=== PATIENT | female | born 1985 | race Asian ===

== ENCOUNTER 2021-12-01 01:38 | Emergency (ER) | payer OTHER ==
[~2021-12-01] VITALS: Ht 162.6 cm; Wt 62.0 kg
[2021-12-01] MEDS ORDERED: METOCLOPRAMIDE HCL 10MG/2ML VIAL IV ONE (02:15)
[2021-12-01] MEDS ORDERED: SODIUM CHLORIDE 0.9% 1,000 ML IV ONE (02:15)
[2021-12-01 02:30] LABS: BASOPHILS % 0.5 % (0.0-2.0); EOSINOPHILS % 1.7 % (0.0-5.0); HEMATOCRIT. 41.9 % (36.0-48.0); HEMOGLOBIN. 14.3 g/dL (12.0-16.0); LYMPHOCYTES % 9.4 % (20.0-50.0); MEAN CORPUSCULAR HEMOGLOBIN 30.4 pg (28.0-32.0); MEAN CORPUSCULAR VOLUME 89.1 fL (81.0-99.0); MEAN PLATELET VOLUME 7.8 fl (7.4-10.4); MONOCYTES % 11.5 % (2.0-8.0); NEUTROPHILS % 76.9 % (40.0-76.0); PLATELET 242 x1000/uL (130-400); RED CELL DISTRIBUTION WIDTH 12.9 % (11.6-14.6)
[2021-12-01 02:33] LABS: CLARITY URINE CLEAR (CLEAR); COLOR URINE YELLOW (YELLOW); KETONES URINE TRACE (NEGATIVE); LEUKOCYTE ESTERASE URINE NEGATIVE (NEGATIVE); NITRITE URINE NEGATIVE (NEGATIVE); OCCULT BLOOD URINE NEGATIVE (NEGATIVE); PROTEIN URINE TRACE (NEGATIVE)
[2021-12-01 02:36] LABS: CHLORIDE 103 mEq/L (98-107)
[2021-12-01 02:41] LABS: HCG SCREEN NEGATIVE
[2021-12-01 02:44] LABS: ETHANOL BLOOD < 10 mg/dL
[2021-12-01] MEDS ORDERED: IBUPROFEN 600MG TABLET PO ONE (02:45)
[2021-12-01] MEDS ORDERED: DIPHENHYDRAMINE 50MG/ML VIAL IV ONE (02:45)
[2021-12-01 02:51] LABS: *AMPHETAMINES SCREEN URINE NEGATIVE (NEGATIVE); *BARBITURATES SCREEN URINE NEGATIVE (NEGATIVE); *BENZODIAZEPINES SCREEN URINE NEGATIVE (NEGATIVE); *COCAINE SCREEN URINE NEGATIVE (NEGATIVE); CANNABINOID URINE SCREEN NEGATIVE (NEGATIVE); METHADONE URINE SCREEN NEGATIVE (NEGATIVE); OPIATES URINE SCREEN NEGATIVE (NEGATIVE); PHENCYCLIDINE URINE SCREEN NEGATIVE (NEGATIVE)
[2021-12-01 02:58] VITALS: BP 115/75
[2021-12-01] MEDS ORDERED: IBUP-2029 MT (03:39)
[2021-12-01] MEDS ORDERED: METO-293 MT (03:39)
== END 2021-12-01 03:49 | disposition home or self-care (01) ==
LOC: ER 01:38
DX: G43.909 Migraine, unspecified, not intractable, without status migrainosus (principal)
CPT/HCPCS: 36415; 80053; 80305; 80320; 81003; 81025; 83690; 84703; 85025; 96361; 96374; 96375; 99284; J1200; J2765; J7030; G0480

== ENCOUNTER 2022-08-02 13:21 | Emergency (ER) | payer MEDICAID, OTHER ==
[~2022-08-02] VITALS: Ht 165.1 cm; Wt 62.0 kg
[~2022-08-02 13:21] MED LIST: IBUP-2029 MT; METO-293 MT
[2022-08-02 13:26] VITALS: BP 119/97
[2022-08-02] MEDS ORDERED: ONDANSETRON 4MG ODT PO ONE (17:00)
== END 2022-08-02 17:09 | disposition home or self-care (01) ==
LOC: ER 13:21
DX: R11.2 Nausea with vomiting, unspecified (principal); I95.9 Hypotension, unspecified
CPT/HCPCS: 99283; Q0162